=== PATIENT | male | born 1995 | race Hispanic/Latino ===

== ENCOUNTER 2018-07-31 11:56 | Inpatient (IN) ==
[2018-07-31] MEDS ORDERED: ZOFRAN PO ONE (12:21)
--- NOTE | 2018-07-31 12:48 | Diag Imaging Result Doc PS360 ---
EXAM: FLAT/UPRIGHT ABD/1 VIEW CHEST 07/31/2018 HISTORY: abdominal pain TECHNIQUE: Flat and upright abdomen with PA chest COMMENT: There is a large amount of stool present in the colon. Numerous surgical clips are present in the right upper quadrant. There is some fluid in the stomach. The small bowel is not apparently distended. The spleen may be enlarged. The appearance of the chest has not changed significantly since the previous study of 06/30/2018. IMPRESSION: Constipation. Splenomegaly. Electronically signed by Omi Leam 07/31/2018 12:46 PM
[2018-07-31 13:19] LABS: BASO# 0.07 X1000 (0.0-0.2); BASO% 0.6 % (0.0-0.8); EOS# 0.06 X1000 (0.0-0.7); EOS% 0.5 % (0.0-10.0); HEMATOCRIT 43.9 % (42.0-52.0); HEMOGLOBIN 14.7 g/dL (14.0-18.0); LYMPH% 14.4 % (20.5-51.1); MCH 27.6 PG (27-31); MCHC 33.5 g/dL (33-37); MCV 82.5 FL (81-99); MONO# 0.51 X1000 (0.11-0.59); MONO% 4.6 % (1.7-9.3); NEUT# 8.84 X1000 (1.4-6.5); NEUT% 79.9 % (42.2-75.2); PLT 348 X1000 (130-400); RBC 5.32 XMIL (4.7-6.1); RDW 13.7 % (11.5-14.5); WBC 11.08 X1000 (4.8-10.8)
[2018-07-31 13:29] LABS: ALB/GLOB RATIO 1.1; ALBUMIN 4.1 g/dL (3.5-5.0); CALCIUM 10.3 mg/dL (8.8-10.2); CREATININE 1.5 mg/dL (0.7-1.2); POTASSIUM 3.8 mmol/L (3.5-5.1); TOTAL BILIRUBIN 0.18 mg/dL (0.20-1.00); TOTAL PROTEIN 7.7 g/dL (6.3-8.3)
[2018-07-31 13:32] LABS: URINE SOURCE CLEAN CATCH
[2018-07-31] MEDS ORDERED: NS 1,000 ML IV ONE ×2 (13:39→14:14)
[2018-07-31 13:41] LABS: BILIRUBIN URINE NEGATIVE (NEGATIVE); BLOOD URINE NEGATIVE (NEGATIVE); COLOR STRAW; GLUCOSE URINE >1000 mg/dL (NEGATIVE); KETONE URINE 100 mg/dL (NEGATIVE); LEUKOCYTES URINE NEGATIVE (NEGATIVE); NITRITE URINE NEGATIVE (NEGATIVE); PROTEIN URINE TRACE mg/dL (NEGATIVE); SP GRAVITY URINE 1.018; TURBIDITY URINE CLEAR (CLEAR); UROBILINOGEN URINE NORMAL (NORMAL)
[2018-07-31 13:44] LABS: UR AMPHETAMINES QUAL NONE DETECTED (NONE DETECT); UR BARBITUATES QUAL NONE DETECTED (NONE DETECT); UR BENZODIAZEPIN QUAL NONE DETECTED (NONE DETECT); UR CANNABINOIDS QUAL NONE DETECTED (NONE DETECT); UR COCAINE QUAL NONE DETECTED (NONE DETECT); UR METHADONE QUAL NONE DETECTED (NONE DETECT); UR OPIATES QUAL NONE DETECTED (NONE DETECT); UR OXYCODONE QUAL NONE DETECTED (NONE DETECT); UR PCP QUAL NONE DETECTED (NONE DETECT)
[2018-07-31] MEDS ORDERED: HUMALOG IV ONE (13:48)
[2018-07-31 14:05] LABS: UR EPITHELIAL CELLS <10 /HPF (<10); URINE BACTERIA NEGATIVE /HPF; URINE RBC <10 /HPF (<10); URINE WBC 20-40 /HPF (<10)
[2018-07-31 14:06] LABS: URINE YEAST PRESENT
[2018-07-31 14:09] LABS: ALLEN TEST YES; BE -21.9 mmoll (-3.0-3.0); BLOOD TYPE ARTERIAL; HCO3-(ACT) 7.8 mmoll (20.0-26.0); METHB 1.6 % (0.0-1.5); O2(CT) 17.9 mL/dL (15.0-23.0); PO2(98.6) 122 mmHg (60-100); SAMPLE BLOOD; SAO2 97.5 % (95.0-100.0); THB 13.3 g/dL (11.5-17.4)
[2018-07-31 14:11] LABS: MODALITY ROOM AIR; PCO2(98.6) 14 mmHg (35-45); pH(98.6) 7.14 (7.35-7.45)
[2018-07-31] MEDS ORDERED: HUMULIN R 100 UNIT in NS 100 ML IV SCH (14:30)
[2018-07-31] MEDS ORDERED: POTASSIUM CHLORIDE 40 MEQ/SWI 40 MEQ/100 ML IVPB IV ONE (14:35)
[2018-07-31] MEDS ORDERED: D50W SYRINGE IV PRN (15:00)
[2018-07-31] MEDS ORDERED: ZOFRAN IV PRN (15:00)
[2018-07-31] MEDS ORDERED: POTASSIUM CHLORIDE 20 MEQ/SWI 20 MEQ/100 ML IVPB IV SCH (15:00)
[2018-07-31] MEDS ORDERED: D5 1/2 NS + KCL 10 MEQ 1,000 ML IV SCH (15:00)
[2018-07-31] MEDS ORDERED: NS 1,000 ML IV SCH (15:00)
[2018-07-31 15:15] LABS: MAGNESIUM 2.1 mg/dL (1.5-2.7); PHOSPHORUS 4.7 mg/dL (2.7-4.5)
[2018-07-31] MEDS ORDERED: SODIUM CHLORIDE 0.9% INJ PRN (15:21)
[2018-07-31] MEDS ORDERED: TYLENOL PO PRN (15:21)
[2018-07-31] MEDS ORDERED: PHENERGAN IV PRN (15:21)
--- NOTE | 2018-07-31 15:23 | PROVIDER DOCUMENTATION ---
This chart was entered by Tanya Figueroa Scribe, acting as scribe for Elbert Mcmillan DO. HPI-Abdominal Pain/GI Problem - General Chief Complaint: Abdominal Pain Stated Complaint: ABD PAIN,VOMITING,LEG PAIN Time Seen by Provider: 07/31/18 12:06 Source: patient Allergies/Adverse Reactions: Patient Allergies Allergy/AdvReac Type Severity Reaction Status Date / Time No Known Allergies Allergy Verified 06/30/18 23:27 Home Medications: Home Medication List Medication Instructions Recorded Confirmed Last Taken Type Prednisone 5 mg PO DAILY 06/30/18 07/31/18 06/30/18 08:00 History Tacrolimus 2.5 mg PO BID 06/30/18 07/31/18 06/30/18 08:00 History Insulin Glargine,Hum.rec.anlog 10 unit SQ Q12H 30 Days #600 units 07/04/18 07/31/18 Unknown Rx [Lantus Solostar] Insulin Aspart [Novolog Flexpen] 5 units SQ TID 07/31/18 07/31/18 Unknown History Mycophenolate Mofetil 1 tab PO DAILY 07/31/18 07/31/18 Unknown History - History of Present Illness-ABD Nature of Presenting Problems: 22 year old male presents to the ER with complaint of vomiting and nausea since this am with bilateral leg pain. Pt had a kidney transplant in 2006 at age 11 and is IDDM. Pt states for the past month he has had high blood sugar levels that have been uncontrolled with insulin. Pt is poor historian with malnourished appearance. Abdominal Pain Onset Location: reports: generalized abdomen Quality of Pain: reports: sharp, stabbing Onset/Duration: reports: this morning Timing: reports: still present Associated Symptoms: reports: nausea, vomiting, weakness, trouble walking, other (leg pain) # of Vomiting Episodes: 2 Review of Systems - Adult - REVIEW OF SYSTEMS - ADULT Constitutional: reports: fatique. denies: chills, fever Eyes: reports: no symptoms reported Ears, Nose, Mouth & Throat: reports: no symptoms reported Cardiovascular: reports: no symptoms reported Respiratory: reports: no symptoms reported Gastrointestinal: reports: abdominal pain, nausea, poor appetite, vomiting. denies: diarrhea Genitourinary: reports: no symptoms reported Musculoskeletal: reports: back pain, muscle aches (BLE), muscle weakness Integumentary: reports: no symptoms reported Neurological: reports: no symptoms reported Psychiatric: reports: no symptoms reported Endocrine: reports: no symptoms reported Hematologic/Lymphatic: reports: no symptoms reported Allergic/Immunologic: reports: no symptoms reported All Other Systems: Reviewed and Negative Past History - Adult - PAST MEDICAL HISTORY-ADULT Review of Records: reports: Nursing Assessment Review, Medications Reviewed Major Childhood Illnesses: reports: denies history Cardiovascular: reports: denies history Respiratory: reports: denies history Gastrointestinal: reports: denies history Obstetrical/Gynecological: reports: denies history Genitourinary: reports: denies history Musculoskeletal: reports: denies history Neurological: reports: denies history Endocrine/Immune: reports: denies history Diabetes Type: Type 1 Diabetes controlled by:: Insulin Dependent - PRIOR SURGERIES/PROCEDURES Surgical/Procedure History: reports: other (kidney transplant) - IMMUNIZATION STATUS Childhood Immunizations: See Nurse Assessment Flu Vaccine: See Nurse Assessment - FAMILY HISTORY Family History: reviewed, not pertinent Physical Exam-General - PHYSICAL EXAM-ADULT Initial Vital Signs Reviewed: Yes - CONSTITUTIONAL General Appearance: no apparent distress, cachetic - EYES Eyes: PERRL/EOMI, pink conjunctivae - HEAD, EARS, NOSE, MOUTH & THROAT HENMT: normocephalic/atraumatic, normal ENT inspection - NECK Neck: supple, normal inspection - RESPIRATORY Respiratory: lungs clear, normal breath sounds - CARDIOVASCULAR Cardiovascular: normal peripheral pulses, regular rate, rhythm - GASTROINTESTINAL (ABDOMEN) Abdominal Exam: tenderness - MUSCULOSKELETAL Back Exam: CVA tenderness, scoliosis (with left convexity) Extremity: tenderness (BLE) - SKIN Integumentary: normal color, warm/dry - NEUROLOGIC Neurologic: grossly normal, no motor/sensory deficits - PSYCHIATRIC Psych/Mental Status: normal mood/affect, normal thought content, normal thought process, oriented x 3 Progress - PLAN OF CARE/RESULTS Progress/Plan/Lab Results: Vital Signs - 8 hr 07/31/18 11:58 Temperature 97.7 F Pulse Rate 122 H Respiratory Rate 18 Blood Pressure 129/87 O2 Sat by Pulse Oximetry 99 Result Diagrams: 07/31/18 12:50 07/31/18 12:50 - REASSESSMENT Reassessment #1 Time Reassessed: 14:22 Status: unchanged (corrected sodium is 133.) - XRAY 1 XRAY Study: Abdomen Impression: Abnormal, See EMR Report (EXAM: FLAT/UPRIGHT ABD/1 VIEW CHEST 07/31/2018 HISTORY: abdominal pain TECHNIQUE: Flat and upright abdomen with PA chest COMMENT: There is a large amount of stool present in the colon. Numerous surgical clips are present in the right upper quadrant. There is some fluid in the stomach. The small bowel is not apparently distended. The spleen may be enlarged. The appearance of the chest has not changed significantly since the previous study of 06/30/2018. IMPRESSION: Constipation. Splenomegaly.) XRAY Interpretation: per radiologist - CONSULTS/PCP/HOSPITALIST Notification #1 *Consult/PCP/Hospitalist*: TAMMY Maya Time Discussed: 14:52 Reason/Comments: Agreed to Admit Consult Disposition: Admit Departure - Departure Date of Disposition Decision: 07/31/18 Time of Disposition Decision: 15:22 DIAGNOSIS: DKA, type 1 Disposition: ADMITTED INPATIENT 09 Certified Medical Emergency: Emergent Condition: Serious Referrals and Follow-Ups: None,PCP [Primary Care Provider] - - Critical Care Note This patient required my direct & personal management of CC.: Yes Total Time (mins): 45 Critical Care Statement: This patient required my direct personal management to treat or rule out processes, the absence of which, could potentiallly result in sudden, clinically significant life or limb threatening deterioration. Attestation - Physician/ CARO Attestation Patient care was provided by Advanced Practice Provider:: No The physician spent face to face time with patient:: Yes Advanced Practice Provider documentation review:: Supervising physician onsite and consulted in the evaluation and care of this patient. The physician did have a face to face encounter with the patient. This chart was documented by the indicated scribe, (Tanya Figueroa, [place]) and accurately reflects the services I performed and decisions made by me, Elbert Mcmillan DO, as attested by the provider's signature.
[2018-07-31] MEDS ORDERED: POTASSIUM CHLORIDE 10% LIQUID PO PRN (16:00)
[2018-07-31] MEDS ORDERED: POTASSIUM CHLORIDE 20 MEQ/SWI 20 MEQ/100 ML IVPB IV PRN (16:00)
[2018-07-31] MEDS ORDERED: SODIUM BICARBONATE 8.4% 100 MEQ in D5W 500 ML IV PRN (16:00)
[2018-07-31] MEDS ORDERED: MAGNESIUM SULFATE 2 GM/S.W.I. 2 GM/50 ML IVPB IV PRN (16:00)
[2018-07-31] MEDS ORDERED: POTASSIUM CHLORIDE 20% LIQUID PO PRN (16:00)
[2018-07-31] MEDS ORDERED: HUMULIN R 100 UNIT in NS 99 ML IV SCH (16:00)
[2018-07-31] MEDS ORDERED: SODIUM PHOSPHATE 30 MMOL in D5W 250 ML IV PRN (16:00)
[2018-07-31] MEDS ORDERED: SODIUM BICARBONATE 8.4% 50 MEQ in D5W 250 ML IV PRN (16:00)
[2018-07-31 16:16] LABS: HEMOGLOBIN A1C > 19.9 % (4.8-6.0)
[2018-07-31 16:17] LABS: EST AVG GLUCOSE > 599 mg/dL
[2018-07-31 16:18] LABS: CK PROFILE 49 U/L (24-204); LIPASE 20 U/L (13-60)
[2018-07-31 16:27] LABS: ACETONE SERUM MODERATE (NEGATIVE)
[2018-07-31] MEDS: NS 1,000 ML IV SCH ×2 (17:45→23:35)
[2018-07-31 18:33] LABS: ALLEN TEST NO; BE -14.2 mmoll (-3.0-3.0); BLOOD TYPE ARTERIAL; HCO3-(ACT) 13.8 mmoll (20.0-26.0); METHB 0.9 % (0.0-1.5); O2(CT) 17.2 mL/dL (15.0-23.0); O2HB 96.9 % (95.0-99.0); PCO2(98.6) 26 mmHg (35-45); PO2(98.6) 107 mmHg (60-100); SAMPLE BLOOD; SAO2 98.7 % (95.0-100.0); THB 12.5 g/dL (11.5-17.4); pH(98.6) 7.25 (7.35-7.45)
[2018-07-31 18:34] LABS: MODALITY ROOM AIR
[2018-07-31 19:40] LABS: AGAP 24; BUN 23 mg/dL (8-22); CALCIUM 9.4 mg/dL (8.8-10.2); CHLORIDE 93 mmol/L (98-107); COSMO 276; CREATININE 1.3 mg/dL (0.7-1.2); ESTIMATED GFR > 60; MAGNESIUM 1.6 mg/dL (1.5-2.7); PHOSPHORUS 2.2 mg/dL (2.7-4.5); SODIUM 127 mmol/L (136-145); TCO2 10 mmol/L (25-35)
[2018-07-31 19:43] LABS: GLUCOSE 405 mg/dL (70-104)
--- NOTE | 2018-07-31 19:43 | HISTORY AND PHYSICAL ---
PRIMARY CARE PROVIDER: No one. CHIEF COMPLAINT: Nausea, vomiting and elevated blood sugar. HISTORY OF PRESENT ILLNESS: Mr. 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 He had his left kidney transplanted November 27, 2006 at the age of 11. Since then he developed type 1 diabetes mellitus that was steroid induced initially. He claims that over the last 2 weeks he has had worsening nausea and vomiting and just feeling bad. He presents here with a serum glucose level of 831 and a leukocytosis of 11 with pH of 7.14. He has been started on the DKA paper protocol, started on IV fluids and insulin. He has had a mild acute kidney injury with this due to the dehydration but it looks like he was most recently admitted essentially for almost the same thing in the middle of June. He has stabilized out and will transfer to [place] [facility]. PAST MEDICAL HISTORY: 1. 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 2. 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 PAST SURGICAL HISTORY: Left kidney transplant 11/27/2006 at the age of 11. No other surgeries. SOCIAL HISTORY: He lives with family. Denies tobacco, alcohol or illicit drug use. FAMILY HISTORY: Denies. ALLERGIES: No known drug allergies. HOME MEDICATIONS: 1. Mycophenolate 500 mg p.o. twice daily. 2. Prednisone 5 mg p.o. daily. 3. Tacrolimus 2.5 mg p.o. twice daily. 4. NovoLog 5 unit subcutaneous t.i.d. 5. Lantus 12 units subcutaneous every 12 hours. REVIEW OF SYSTEMS: A 14-point review of systems was complete and all were negative except those mentioned above in the HPI. PHYSICAL EXAMINATION: VITAL SIGNS: Temperature 97.7, heart rate 115, respiratory rate 18, blood pressure 119/79, O2 saturation 100% on room air. He is 5 feet 7 inches tall, 121 pounds with a BMI of 19. GENERAL: Mr. Piotr Cantu is a 22-year-old male who is in no acute distress, resting comfortably in the bed. He is drowsy but is able to be alert enough to answer questions. HEENT: Atraumatic. Normocephalic. Pupils equal, round and reactive to light. Extraocular movements are intact. Mucous membranes are dry. NECK: Trachea is midline. LUNGS: Clear to auscultation bilateral breath sounds. No accessory muscle use or work with breathing noted. CARDIOVASCULAR: S1 and S2. Tachycardic rate and rhythm. No rubs, gallops or murmurs. No lower extremity edema. +2 dorsal and radial pulses. Negative JVD or carotid bruits. ABDOMEN: Soft. Nontender. Nondistended. Positive bowel sounds x4. EXTREMITIES: Moves all extremities equally with full range of motion. NEUROLOGIC: Alert and oriented x3. Follows commands. Sensory intact. SKIN: Warm, dry and intact. LABORATORY DATA: White blood cell count 11,000, hemoglobin 14, hematocrit 43, platelet count 348. ABGs on room air with pH of 7.14, PCO2 14, PO2 122, bicarbonate 7.8, base excess -21.9 with a saturation of 95, lactate 1.5, sodium 121, potassium 3.8, BUN 26, creatinine 1.5, glucose 831 with the next two checks being 500. Phosphorus 4.7, magnesium 2.1, bilirubin 0.18, AST 24, ALT 34, albumin 4.1, amylase 51. Urinalysis with trace protein, greater than 1000 glucose, 100 ketones, 20 to 40 white blood cells. Urine drug screen negative. IMAGING: Abdominal x-ray with constipation and splenomegaly. ASSESSMENT AND PLAN: 1. Diabetic ketoacidosis. Will follow diabetic ketoacidosis protocol, IV fluids, insulin, first blood glucose level was 831. 2. Nausea and vomiting. Antiemetics as needed. 3. Constipation. Will add Ruth-Colace to the regimen. 4. Type 1 diabetes mellitus that was initially steroid-induced from surgery. Please see No. 1. 5. Acute kidney injury with history of left renal transplant due to being born with kidney failure and prune belly syndrome that was performed on 11/27/2006 at the age of 11. Will continue his immunosuppressive medications which include prednisone 5 mg p.o. daily, tacrolimus 2.5 mg p.o. twice daily and mycophenolate 500 mg p.o. twice daily. 6. DVT prophylaxis with heparin 5000 units subcutaneous twice daily. Dictated by TAMMY Conn for Gunnar Ramirez MD cc: TAMMY Conn MD
[2018-07-31] MEDS ORDERED: PROGRAF PO SCH (21:00)
[2018-07-31] MEDS: ROCEPHIN 1 GM in NS 50 ML IV SCH (21:05)
[2018-07-31] MEDS: POTASSIUM CHLORIDE 40 MEQ/SWI 40 MEQ/100 ML IVPB IV PRN (21:06)
[2018-07-31] MEDS: HEPARIN SUBQ SCH (21:12)
[2018-07-31] MEDS: PERICOLACE PO SCH (21:13)
[2018-07-31] MEDS: D5 NS 1,000 ML IV SCH (21:15)
[2018-07-31 21:26] LABS: AGAP 17; BUN 17 mg/dL (8-22); CALCIUM 8.7 mg/dL (8.8-10.2); CHLORIDE 102 mmol/L (98-107); COSMO 274; ESTIMATED GFR > 60; GLUCOSE 216 mg/dL (70-104); MAGNESIUM 1.5 mg/dL (1.5-2.7); PHOSPHORUS 1.7 mg/dL (2.7-4.5); POTASSIUM 3.3 mmol/L (3.5-5.1); SODIUM 133 mmol/L (136-145); TCO2 14 mmol/L (25-35)
[2018-07-31] MEDS: CELLCEPT PO SCH (21:45)
[2018-07-31] MEDS ORDERED: PROGRAF PO ONE (22:00)
[2018-08-01 01:59] LABS: AGAP 11; BUN 12 mg/dL (8-22); CHLORIDE 108 mmol/L (98-107); COSMO 275; CREATININE 0.9 mg/dL (0.7-1.2); ESTIMATED GFR > 60; GLUCOSE 199 mg/dL (70-104); MAGNESIUM 2.1 mg/dL (1.5-2.7); PHOSPHORUS 1.6 mg/dL (2.7-4.5); POTASSIUM 3.3 mmol/L (3.5-5.1); SODIUM 135 mmol/L (136-145); TCO2 17 mmol/L (25-35)
[2018-08-01] MEDS: D5 NS 1,000 ML IV SCH ×2 (02:27→08:34)
[2018-08-01] MEDS: POTASSIUM CHLORIDE 40 MEQ/SWI 40 MEQ/100 ML IVPB IV PRN (02:27)
[2018-08-01 06:09] LABS: BE -9.1 mmoll (-3.0-3.0); BLOOD TYPE ARTERIAL; HCO3-(ACT) 17.8 mmoll (20.0-26.0); METHB 0.9 % (0.0-1.5); O2(CT) 16.2 mL/dL (15.0-23.0); PCO2(98.6) 36 mmHg (35-45); PO2(98.6) 92 mmHg (60-100); SAMPLE BLOOD; SAO2 99.5 % (95.0-100.0); THB 11.9 g/dL (11.5-17.4); pH(98.6) 7.28 (7.35-7.45)
[2018-08-01 06:11] LABS: ALLEN TEST NO; MODALITY ROOM AIR
[2018-08-01 07:16] LABS: BASO# 0.02 X1000 (0.0-0.2); BASO% 0.3 % (0.0-0.8); EOS# 0.18 X1000 (0.0-0.7); EOS% 2.4 % (0.0-10.0); HEMOGLOBIN 11.4 g/dL (14.0-18.0); IMM GRAN# 0.03 X1000 (0.0-0.04); IMM GRAN% 0.4 % (0.0-0.5); LYMPH# 2.35 X1000 (1.2-3.4); LYMPH% 30.9 % (20.5-51.1); MCH 27.1 PG (27-31); MCHC 35.6 g/dL (33-37); MCV 76.2 FL (81-99); MONO# 0.68 X1000 (0.11-0.59); MONO% 8.9 % (1.7-9.3); MPV 10.6 FL (7.4-10.4); NEUT# 4.35 X1000 (1.4-6.5); NEUT% 57.1 % (42.2-75.2); PLT 267 X1000 (130-400); RDW 13.1 % (11.5-14.5); WBC 7.61 X1000 (4.8-10.8)
[2018-08-01 07:35] LABS: AGAP 10; BUN 11 mg/dL (8-22); CHLORIDE 109 mmol/L (98-107); COSMO 278; CREATININE 0.8 mg/dL (0.7-1.2); ESTIMATED GFR > 60; GLUCOSE 185 mg/dL (70-104); MAGNESIUM 1.8 mg/dL (1.5-2.7); PHOSPHORUS 1.9 mg/dL (2.7-4.5); POTASSIUM 3.7 mmol/L (3.5-5.1); SODIUM 137 mmol/L (136-145); TCO2 18 mmol/L (25-35)
[2018-08-01 07:41] LABS: AGAP 10; ALKALINE PHOSPHATASE 92 U/L (32-122); BUN 11 mg/dL (8-22); CHLORIDE 110 mmol/L (98-107); COSMO 278; CREATININE 0.8 mg/dL (0.7-1.2); ESTIMATED GFR > 60; GLUCOSE 185 mg/dL (70-104); GOT 16 U/L (10-34); GPT 22 U/L (10-44); POTASSIUM 3.9 mmol/L (3.5-5.1); SODIUM 137 mmol/L (136-145); TCO2 18 mmol/L (25-35); TOTAL BILIRUBIN < 0.15 mg/dL (0.20-1.00); TOTAL PROTEIN 5.2 g/dL (6.3-8.3)
[2018-08-01] MEDS ORDERED: INSULIN PEN NEEDLES ONE (07:48)
[2018-08-01] MEDS: BASAGLAR SUBQ SCH ×2 (08:00→21:04)
[2018-08-01] MEDS: PERICOLACE PO SCH ×2 (08:15→21:04)
[2018-08-01] MEDS: PREDNISONE PO SCH (08:15)
[2018-08-01] MEDS: NS 1,000 ML IV SCH ×3 (08:35→21:04)
[2018-08-01] MEDS ORDERED: PROGRAF PO SCH (09:00)
[2018-08-01] MEDS: HEPARIN SUBQ SCH (09:00)
[2018-08-01] MEDS ORDERED: MYCOPHENOLATE MOFETIL PO SCH (09:00)
[2018-08-01] MEDS: CELLCEPT PO SCH ×2 (09:48→21:08)
[2018-08-01] MEDS: PROGRAF PO SCH ×4 (09:48→21:06)
[2018-08-01 09:54] LABS: AGAP 10; BUN 9 mg/dL (8-22); CHLORIDE 104 mmol/L (98-107); COSMO 268; CREATININE 0.9 mg/dL (0.7-1.2); ESTIMATED GFR > 60; GLUCOSE 176 mg/dL (70-104); MAGNESIUM 1.7 mg/dL (1.5-2.7); PHOSPHORUS 2.1 mg/dL (2.7-4.5); POTASSIUM 3.2 mmol/L (3.5-5.1); SODIUM 132 mmol/L (136-145); TCO2 18 mmol/L (25-35)
--- NOTE | 2018-08-01 10:10 | EKG Report ---
Test Performed on : 08/01/2018 08:35:27 AM Test Reason : AM EKG Blood Pressure : / mmHG Vent. Rate : 073 BPM Atrial Rate : 073 BPM P-R Int : 130 ms QRS Dur : 082 ms QT Int : 406 ms P-R-T Axes : 058 068 055 degrees QTc Int : 447 ms Normal sinus rhythm. with sinus arrhythmia. ST elevation, consider early repolarization, pericarditis, or injury Abnormal ECG No previous ECGs available Unconfirmed Result
[2018-08-01] MEDS ORDERED: INSULIN PEN NEEDLES MISC SCH (11:15)
[2018-08-01] MEDS ORDERED: HUMALOG (PARKWAY) SUBQ SCH ×2 (11:30→13:28)
[2018-08-01 13:33] LABS: AGAP 10; BUN 10 mg/dL (8-22); CALCIUM 7.6 mg/dL (8.8-10.2); CHLORIDE 102 mmol/L (98-107); COSMO 279; CREATININE 0.9 mg/dL (0.7-1.2); ESTIMATED GFR > 60; GLUCOSE 449 mg/dL (70-104); PHOSPHORUS 1.8 mg/dL (2.7-4.5); POTASSIUM 3.5 mmol/L (3.5-5.1); SODIUM 130 mmol/L (136-145); TCO2 18 mmol/L (25-35)
[2018-08-01] MEDS ORDERED: BASAGLAR SUBQ ONE (13:36)
[2018-08-01] MEDS ORDERED: HUMALOG (PARKWAY) SUBQ ONE (13:46)
[2018-08-01] MEDS: HUMALOG (PARKWAY) SUBQ SCH ×2 (16:34→21:05)
[2018-08-01] MEDS ORDERED: INSULIN ASPART 5 UNIT SQ SCH (17:00)
[2018-08-01 18:51] LABS: AGAP 9; ALBUMIN 2.8 g/dL (3.5-5.0); BUN 10 mg/dL (8-22); CALCIUM 7.7 mg/dL (8.8-10.2); CHLORIDE 106 mmol/L (98-107); COSMO 275; CREATININE 0.9 mg/dL (0.7-1.2); ESTIMATED GFR > 60; GLUCOSE 266 mg/dL (70-104); PHOSPHORUS 1.8 mg/dL (2.7-4.5); POTASSIUM 3.8 mmol/L (3.5-5.1); SODIUM 133 mmol/L (136-145); TCO2 18 mmol/L (25-35)
[2018-08-01] MEDS: ROCEPHIN 1 GM in NS 50 ML IV SCH (21:04)
--- NOTE | 2018-08-01 22:44 | PROGRESS NOTE ---
DATE: 08/01/2018 SUBJECTIVE: Patient notes he is feeling a lot better. Nausea is improved. Denies any chest pain, palpitations. OBJECTIVE: Vital Signs: Temperature 98.6, pulse 92, respiratory 20, BP 101/59. General: Patient is awake, alert. No current respiratory distress. HEENT: Normocephalic. Neck: Supple. CARDIOVASCULAR: Regular rate. Chest: Clear. Abdomen: Soft. Extremities: Moves all extremities. ASSESSMENT: 1. Diabetic ketoacidosis, appears resolved. Bicarb is 17. 2. Hypokalemia. 3. Diabetes with hyperglycemia, type 1. 4. Constipation. PLAN: We will continue patient in the hospital. Advance diet. Stop insulin drip. Place him on Lantus. Further orders as needed. cc: Gunnar Ramirez MD
[2018-08-02 01:04] LABS: ALBUMIN 2.6 g/dL (3.5-5.0); BUN 13 mg/dL (8-22); CALCIUM 7.4 mg/dL (8.8-10.2); ESTIMATED GFR > 60; GLUCOSE 356 mg/dL (70-104); PHOSPHORUS 1.7 mg/dL (2.7-4.5); TCO2 21 mmol/L (25-35)
[2018-08-02 01:25] LABS: CHLORIDE 103 mmol/L (98-107); POTASSIUM 3.1 mmol/L (3.5-5.1); SODIUM 134 mmol/L (136-145)
[2018-08-02 01:26] LABS: AGAP 9; COSMO 283
[2018-08-02] MEDS ORDERED: INSULIN PEN NEEDLES MISC PRN (06:17)
[2018-08-02 06:19] LABS: HEMATOCRIT 31.1 % (42.0-52.0); HEMOGLOBIN 10.9 g/dL (14.0-18.0); MCH 27.1 PG (27-31); MCV 77.4 FL (81-99); MPV 10.2 FL (7.4-10.4); RBC 4.02 XMIL (4.7-6.1); RDW 13.4 % (11.5-14.5); WBC 4.9 X1000 (4.8-10.8)
[2018-08-02] MEDS: NS 1,000 ML IV SCH (06:19)
[2018-08-02] MEDS: HUMALOG (PARKWAY) SUBQ SCH ×7 (06:20→21:53)
[2018-08-02] MEDS ORDERED: BASAGLAR SUBQ SCH (09:00)
[2018-08-02] MEDS: PROGRAF PO SCH ×4 (09:52→21:51)
[2018-08-02] MEDS: PERICOLACE PO SCH ×2 (09:52→21:53)
[2018-08-02] MEDS: PREDNISONE PO SCH (09:52)
[2018-08-02] MEDS: CELLCEPT PO SCH ×2 (10:00→21:51)
--- NOTE | 2018-08-02 20:16 | PROGRESS NOTE ---
DATE: 08/02/2018 SUBJECTIVE: Patient has no complaints, states he is tolerating eating. OBJECTIVE: Vital signs: Temperature 98.6, pulse 92, respiratory rate 18, BP 101/59. General: Patient is awake, currently is in no respiratory distress. HEENT: Normocephalic. Neck: Supple. Cardiovascular: Regular rate. No murmurs. Chest: Clear nonlabored. Abdomen: Soft, nondistended. Extremities: Moves all extremities. ASSESSMENT: 1. Diabetic ketoacidosis, resolved. 2. Diabetes with poor control. 3. Medical noncompliance. 4. Nausea and vomiting, resolved. 5. Constipation, resolved. 6. Hypokalemia. We will continue to replace. PLAN: We will continue to adjust his insulin. Given that he has just recently in the hospital with DKA, we certainly do not want to send him home until his blood sugars are controlled so that we know what plan to give him. I expect that he will be in the hospital another day or two. cc: Gunnar Ramirez MD
[2018-08-02] MEDS: ROCEPHIN 1 GM in NS 50 ML IV SCH (21:53)
[2018-08-03] MEDS: HUMALOG (PARKWAY) SUBQ SCH ×7 (06:49→21:39)
[2018-08-03] MEDS: ROCEPHIN 1 GM in NS 50 ML IV SCH (06:52)
[2018-08-03] MEDS: PREDNISONE PO SCH (08:52)
[2018-08-03] MEDS: CELLCEPT PO SCH ×2 (08:52→21:34)
[2018-08-03] MEDS: PERICOLACE PO SCH ×2 (08:52→21:33)
[2018-08-03] MEDS: PROGRAF PO SCH ×4 (08:52→21:33)
[2018-08-03] MEDS ORDERED: BASAGLAR SUBQ SCH (09:00)
--- NOTE | 2018-08-04 00:59 | PROGRESS NOTE ---
DATE: 08/03/2018 SUBJECTIVE: Patient notes that overall he is feeling a little bit better. Still not eating well, still worried about his blood sugars being elevated. PHYSICAL EXAMINATION: Vital Signs: Reviewed. Temperature 97.8 degrees, pulse 61, respiratory 22, BP 122/72. General: Patient is awake, alert, currently in no distress. HEENT: Normocephalic. Neck: Supple. Cardiovascular: Appears regular rate and rhythm. Chest: Decreased but equal breath sounds bilaterally. Abdomen: Soft, nondistended. Extremities: Moves all extremities. ASSESSMENT: 1. Diabetes with hyperglycemia. We will continue to increase Basaglar up to 24 units. 2. Hyponatremia. 3. Constipation. 4. Others. PLAN: Will replace patient's potassium. Elevate Basaglar from 22 to 24 units and will follow. cc: Gunnar Ramirez MD
[2018-08-04] MEDS: HUMALOG (PARKWAY) SUBQ SCH ×7 (07:29→16:55)
[2018-08-04] MEDS: ROCEPHIN 1 GM in NS 50 ML IV SCH (07:30)
[2018-08-04] MEDS ORDERED: BASAGLAR SUBQ SCH (09:00)
[2018-08-04] MEDS: PERICOLACE PO SCH (10:03)
[2018-08-04] MEDS: PROGRAF PO SCH ×2 (10:03)
[2018-08-04] MEDS: PREDNISONE PO SCH (10:04)
[2018-08-04] MEDS: CELLCEPT PO SCH (10:04)
[2018-08-04 16:46] VITALS: BP 115/76
--- NOTE | 2018-08-05 05:41 | DISCHARGE SUMMARY ---
ADMISSION DATE: 07/31/2018 DISCHARGE DATE: 08/04/2018 DIAGNOSES: 1. Diabetic ketoacidosis. 2. Nausea and vomiting. 3. Constipation. 4. Diabetes mellitus type 1. 5. 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 DIAGNOSTICS: Abdominal x-ray revealed constipation and splenomegaly. MICROBIOLOGY: 1. Blood cultures x2 revealed no growth. 2. Urine culture revealed mixed yves. HOSPITAL COURSE: Mr. Cantu presented to the emergency room with nausea, vomiting and elevated blood sugar. He was found to be in DKA. He was admitted to ICU, treated with DKA protocol. Thankfully, we were able to wean his insulin drip. We increased his Basaglar to 24 units, transitioned back to his home medications and blood sugars have been in the 200s. We trended electrolytes. We repleted as appropriate. He did have constipation. After bowel regimen, he had 4 bowel movements. States he is feeling much better. Thankfully, today he was ready for discharge. DISCHARGE VITAL SIGNS: Blood pressure is 115/76 with a heart rate of 100, respirations are 18, temperature 98.3 degrees with room air sat 98-100%. DISCHARGE EXAMINATION: Cardiovascular: Regular rate and rhythm. S1 and S2 appreciated. He was tachycardic. No rubs, murmurs or gallops. He has no lower extremity edema with peripheral pulses palpable x4 extremities. Calves nontender bilateral Pulmonary: Breath sounds were clear with no increased work of breathing noted. Gastrointestinal: Abdomen is soft, nontender, nondistended with bowel sounds in all 4 quadrants. Neurologic: He is alert and oriented x3. DISCHARGE MEDICATIONS: 1. CellCept 500 mg 1 tab b.i.d. 2. Basaglar insulin 24 units subcutaneous daily. 3. NovoLog FlexPen 5 units subcutaneously 3 times a day before meals 4. Prednisone 5 mg p.o. daily. 5. Tacrolimus 2.5 mg b.i.d. FOLLOWUP: 1. He has been instructed to call his has chalk cutter, transplant team today or tomorrow, notify them of this admission and schedule a follow-up appointment. 2. He is being discharged home in stable condition with family members. TIME SPENT: This is a greater than 30 minute discharge. Dictated by TAMMY Lopez for Gunnar Ramirez MD cc: TAMMY Lopez MD
--- NOTE | 2018-08-05 17:59 | DISCHARGE SUMMARY ---
ADMISSION DATE: 07/31/2018 DISCHARGE DATE: 08/04/2018 Addendum Report Patient seen and examined by myself. Full note dictated and discussed with nurse practitioner. On discharge, patient is awake, currently in no distress. Blood sugars minimally elevated in the mid 200s. We will continue to encourage him to increase his insulin at home. He will follow up outpatient with his primary care in 1 week to readjust his insulin levels. cc: Gunnar Ramirez MD
== END 2018-08-04 18:43 | disposition home or self-care (01) | DRG 638 ==
LOC: ED 11:56 → P.EDIPHOLD 11:57 → P.ICU 18:55 → P.MEDSURG 08-02 18:21
PROVIDERS: ATTEND Family Medicine
CPT/HCPCS: 36415; 74022; 80048; 80053; 80061; 80069; 80101; 80301; 80307; 80324; 80345; 80346; 80353; 80358; 80361; 80365; 81001; 82009; 82150; 82550; 82805; 82948; 83036; 83605; 83690; 83721; 83735; 83992; 84100; 84484; 85025; 85027; 87040; 87088; 93005; 99285; A9270; G0431; G0434; G0479; G0480; J0696; J1644; J1815; J2405; J3475; J3480; J7030; J7042; J7506; J7512; J7517; XXXXX

== ENCOUNTER 2019-06-06 07:35 | Inpatient (IN) ==
--- NOTE | 2019-06-06 08:05 | EKG Report ---
Test Performed on : 06/06/2019 07:39:40 AM Test Reason : CHEST PAIN Blood Pressure : / mmHG Vent. Rate : 120 BPM Atrial Rate : 120 BPM P-R Int : 126 ms QRS Dur : 082 ms QT Int : 346 ms P-R-T Axes : 066 064 071 degrees QTc Int : 489 ms Sinus tachycardia. Otherwise normal ECG When compared with ECG of 01-AUG-2018 08:35, Vent. rate has increased BY [address] no longer elevated in Inferior leads ST no longer elevated in Lateral leads T wave inversion no longer evident in Anterior leads Unconfirmed Result
[2019-06-06] MEDS ORDERED: HUMULIN R IV ONE (09:06)
[2019-06-06] MEDS ORDERED: NS 1,000 ML IV ONE (09:06)
--- NOTE | 2019-06-06 09:10 | PROVIDER DOCUMENTATION ---
HPI-General Adult - General Chief Complaint: Chest Pain Stated Complaint: CHEST PAIN,SOB Time Seen by Provider: 06/06/19 08:07 Source: patient, family Allergies/Adverse Reactions: Patient Allergies Allergy/AdvReac Type Severity Reaction Status Date / Time ibuprofen [From Motrin] AdvReac Unknown Verified 06/06/19 08:31 Home Medications: Home Medication List Medication Instructions Recorded Confirmed Last Taken Type Prednisone 5 mg PO DAILY 06/30/18 06/06/19 06/05/19 History Tacrolimus 2.5 mg PO DAILY 06/30/18 06/06/19 06/05/19 History Insulin Aspart [Novolog Flexpen] 10 units SQ TID 07/31/18 06/06/19 06/05/19 History Mycophenolate Mofetil 1 tab PO HS 07/31/18 06/06/19 06/05/19 History Amlodipine [Norvasc] 10 mg PO BID 06/06/19 06/06/19 06/05/19 History Insulin Glargine,Hum.rec.anlog 20 units SQ HS 06/06/19 06/06/19 06/05/19 History [Lantus Solostar] LISINOpril [Prinivil] 5 mg PO HS 06/06/19 06/06/19 06/05/19 History Nitrofurantoin Macrocrystal 100 mg PO HS 06/06/19 06/06/19 06/05/19 History [Macrodantin] Omeprazole [Prilosec] 20 mg PO DAILY 06/06/19 06/06/19 06/05/19 History - History of Present Illness -Gen Adult Nature of Presenting Problems: 23 yo reports tachycardia an weakness.2nd day of sxs. polyuria and polydipsia, weak, no fever or cough. reports steroid induced DM , renal transplant pt. Review of Systems - Adult - REVIEW OF SYSTEMS - ADULT Constitutional: reports: no symptoms reported, fatique. denies: chills, fever Eyes: reports: no symptoms reported Ears, Nose, Mouth & Throat: reports: no symptoms reported Cardiovascular: reports: no symptoms reported Respiratory: reports: no symptoms reported Gastrointestinal: reports: no symptoms reported Genitourinary: reports: no symptoms reported Musculoskeletal: reports: no symptoms reported Integumentary: reports: no symptoms reported Neurological: reports: no symptoms reported Psychiatric: reports: no symptoms reported Endocrine: reports: no symptoms reported, polyuria. denies: change in skin pigment, goiter Hematologic/Lymphatic: reports: no symptoms reported Allergic/Immunologic: reports: no symptoms reported All Other Systems: Reviewed and Negative Past History - Adult - PAST MEDICAL HISTORY-ADULT Review of Records: reports: Nursing Assessment Review, Medications Reviewed, Social history reviewed & non-contributory. Major Childhood Illnesses: reports: denies history Cardiovascular: reports: denies history Respiratory: reports: denies history Gastrointestinal: reports: denies history Obstetrical/Gynecological: reports: denies history Genitourinary: reports: denies history Musculoskeletal: reports: denies history Neurological: reports: denies history Endocrine/Immune: reports: denies history Other Conditions: reports: denies history - IMMUNIZATION STATUS Childhood Immunizations: See Nurse Assessment Flu Vaccine: See Nurse Assessment - FAMILY HISTORY Family History: reviewed, not pertinent Physical Exam-General - PHYSICAL EXAM-ADULT Initial Vital Signs Reviewed: Yes (tachy) - CONSTITUTIONAL General Appearance: alert, no apparent distress - EYES Eyes: PERRL/EOMI - HEAD, EARS, NOSE, MOUTH & THROAT HENMT: normocephalic/atraumatic, other (throat dry, not red). 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, grossly normal, no motor/sensory deficits - PSYCHIATRIC Psych/Mental Status: normal mood/affect, oriented x 3 Progress - PLAN OF CARE/RESULTS Progress/Plan/Lab Results: Vital Signs - 8 hr 06/06/19 07:47 Temperature 97.8 F Pulse Rate 123 H Respiratory Rate 22 Blood Pressure 141/90 O2 Sat by Pulse Oximetry 99 Orders Category Date Time Status Finger Stick Blood Sugar (ED) DIRECTED Care 06/06/19 08:59 Ordered Saline Loc NOW Care 06/06/19 08:59 Ordered CHEST-PORTABLE [RAD] Stat Exams 06/06/19 09:03 Ordered ABG [RESP] Stat Lab 06/06/19 09:04 Ordered CBC WITH ELECTRONIC DIFF [HEME] Stat Lab 06/06/19 09:02 Uncollected COMPREHENSIVE METABOLIC PANEL [CHEM] Stat Lab 06/06/19 09:02 Uncollected INFLUENZA SCREEN A/B Stat Lab 06/06/19 09:03 Uncollected LACTATE, PLASMA [CHEM] Stat Lab 06/06/19 08:43 Uncollected LACTATE, PLASMA [CHEM] Stat Lab 06/06/19 09:03 Uncollected MAGNESIUM [CHEM] Stat Lab 06/06/19 09:03 Uncollected URINALYSIS W/POSS RFLX CULT [URINALYSIS] Stat Lab 06/06/19 09:03 Uncollected URINE DRUG SCREEN Stat Lab 06/06/19 09:03 Uncollected Insulin Human Regular [Humulin R] Med 06/06/19 09:06 Once 10 unit IV NOW ONE Ns 1000 ml IV Bolus X1 Med 06/06/19 09:06 Ordered 0.9% Sodium Chloride Inj [Ns] 1,000 ml IV 999 mls/hr EKG [EKG] Stat Ther 06/06/19 07:57 Draft Result Diagrams: 06/06/19 08:20 06/06/19 08:20 - CONSULTS/PCP/HOSPITALIST Notification #1 *Consult/PCP/Hospitalist*: KEVIN ARNOLD Time Discussed: 11:16 Consult Disposition: Admit Departure - Departure Date of Disposition Decision: 06/06/19 Time of Disposition Decision: 11:16 DIAGNOSIS: DKA, type 1, Renal transplant recipient Disposition: ADMITTED INPATIENT 09 Certified Medical Emergency: Emergent Condition: Fair Referrals and Follow-Ups: Mark Wing [Primary Care Provider] - - Critical Care Note This patient required my direct & personal management of CC.: Yes Total Time (mins): 35 Critical Care Statement: This patient required my direct personal management to treat or rule out processes, the absence of which, could potentiallly result in sudden, clinically significant life or limb threatening deterioration. Attestation - Physician/ CARO Attestation The physician spent face to face time with patient:: Yes Advanced Practice Provider documentation review:: Supervising physician onsite and consulted in the evaluation and care of this patient. The physician did have a face to face encounter with the patient.
--- NOTE | 2019-06-06 09:36 | Diag Imaging Result Doc PS360 ---
EXAM: CHEST-PORTABLE HISTORY: dka TECHNIQUE: Single view COMPARISON: 07/31/2018 FINDINGS: The lungs are well expanded. The heart is not enlarged. The vessels are not distended. There are no infiltrates. No effusion identified. Mild to moderate scoliosis IMPRESSION: Negative exam. Electronically signed by Gabriel Trevino 06/06/2019 9:34 AM
[2019-06-06 09:40] LABS: BASO# 0.05 X1000 (0.0-0.2); BASO% 0.3 % (0.0-0.8); EOS# 0.29 X1000 (0.0-0.7); EOS% 1.9 % (0.0-10.0); HEMATOCRIT 42.4 % (42.0-52.0); HEMOGLOBIN 13.6 g/dL (14.0-18.0); IMM GRAN# 0.17 X1000 (0.0-0.04); IMM GRAN% 1.1 % (0.0-0.5); LYMPH# 4.11 X1000 (1.2-3.4); LYMPH% 27.3 % (20.5-51.1); MCH 24.6 PG (27-31); MCHC 32.1 g/dL (33-37); MCV 76.8 FL (81-99); MONO# 0.85 X1000 (0.11-0.59); MONO% 5.7 % (1.7-9.3); MPV 11.3 FL (7.4-10.4); NEUT# 9.56 X1000 (1.4-6.5); NEUT% 63.7 % (42.2-75.2); PLT 423 X1000 (130-400); RBC 5.52 XMIL (4.7-6.1); RDW 13.5 % (11.5-14.5); WBC 15.03 X1000 (4.8-10.8)
[2019-06-06 09:40] LABS: ALLEN TEST YES; BE -24.3 mmoll (-3.0-3.0); BLOOD TYPE ARTERIAL; METHB 1.2 % (0.0-1.5); O2(CT) 19.2 mL/dL (15.0-23.0); O2HB 96.9 % (95.0-99.0); PO2(98.6) 117 mmHg (60-100); SAMPLE BLOOD; SAO2 99.6 % (95.0-100.0)
[2019-06-06 09:43] LABS: MODALITY ROOM AIR; PCO2(98.6) 14 mmHg (35-45); pH(98.6) 7.06 (7.35-7.45)
[2019-06-06 09:58] LABS: ALB/GLOB RATIO 0.7; ALBUMIN 3.8 g/dL (3.5-5.0); CALCIUM 10.2 mg/dL (8.8-10.2); CREATININE 1.8 mg/dL (0.7-1.2); MAGNESIUM 2.4 mg/dL (1.5-2.7); POTASSIUM 4.1 mmol/L (3.5-5.1); TOTAL BILIRUBIN 0.23 mg/dL (0.20-1.00); TOTAL PROTEIN 9.3 g/dL (6.3-8.3)
[2019-06-06] MEDS ORDERED: HUMULIN R 100 UNIT in NS 99 ML IV ONE (10:09)
[2019-06-06 11:23] LABS: URINE SOURCE CLEAN CATCH
[2019-06-06 11:28] LABS: BILIRUBIN URINE NEGATIVE (NEGATIVE); BLOOD URINE SMALL (NEGATIVE); COLOR YELLOW; GLUCOSE URINE >1000 mg/dL (NEGATIVE); KETONE URINE 150 mg/dL (NEGATIVE); LEUKOCYTES URINE LARGE (NEGATIVE); NITRITE URINE NEGATIVE (NEGATIVE); PROTEIN URINE 50 mg/dL (NEGATIVE); SP GRAVITY URINE 1.017; TURBIDITY URINE HAZY (CLEAR); UROBILINOGEN URINE NORMAL (NORMAL)
[2019-06-06] MEDS ORDERED: POTASSIUM CHLORIDE 10% LIQUID PO ONE (11:39)
[2019-06-06 11:41] LABS: UR AMPHETAMINES QUAL NONE DETECTED (NONE DETECT); UR BARBITUATES QUAL NONE DETECTED (NONE DETECT); UR BENZODIAZEPIN QUAL NONE DETECTED (NONE DETECT); UR CANNABINOIDS QUAL NONE DETECTED (NONE DETECT); UR COCAINE QUAL NONE DETECTED (NONE DETECT); UR METHADONE QUAL NONE DETECTED (NONE DETECT); UR OPIATES QUAL NONE DETECTED (NONE DETECT); UR OXYCODONE QUAL NONE DETECTED (NONE DETECT); UR PCP QUAL NONE DETECTED (NONE DETECT)
[2019-06-06] MEDS ORDERED: HUMULIN R 100 UNIT in NS 100 ML IV SCH (11:50)
[2019-06-06] MEDS ORDERED: MAGNESIUM SULFATE 2 GM/S.W.I. 2 GM/50 ML IVPB IV PRN (11:50)
[2019-06-06] MEDS ORDERED: COMPAZINE IV PRN (11:50)
[2019-06-06] MEDS ORDERED: POTASSIUM CHLORIDE 20 MEQ/SWI 20 MEQ/100 ML IVPB IV PRN (11:50)
[2019-06-06] MEDS ORDERED: SODIUM PHOSPHATE 30 MMOL in D5W 250 ML IV PRN (11:50)
[2019-06-06] MEDS ORDERED: SODIUM BICARBONATE 8.4% 100 MEQ in STERILE WATER INJ. 500 ML IV PRN (11:50)
[2019-06-06] MEDS ORDERED: TYLENOL PR PRN (11:50)
[2019-06-06] MEDS ORDERED: ZOFRAN IV PRN (11:50)
[2019-06-06] MEDS ORDERED: D50W SYRINGE IV PRN (11:50)
[2019-06-06] MEDS ORDERED: TYLENOL PO PRN (11:50)
[2019-06-06] MEDS ORDERED: POTASSIUM CHLORIDE 40 MEQ/SWI 40 MEQ/100 ML IVPB IV PRN (11:50)
[2019-06-06 11:52] LABS: UR EPITHELIAL CELLS <10 /HPF (<10); URINE BACTERIA NEGATIVE /HPF; URINE RBC <10 /HPF (<10); URINE WBC TNTC /HPF (<10)
[2019-06-06 11:59] LABS: URINE YEAST PRESENT
[2019-06-06] MEDS ORDERED: NS 1,000 ML IV SCH (12:00)
[2019-06-06] MEDS: NS 1,000 ML IV SCH ×3 (12:10→15:43)
[2019-06-06 12:27] LABS: PHOSPHORUS 5.3 mg/dL (2.7-4.5)
[2019-06-06 14:37] LABS: CALCIUM 9.4 mg/dL (8.8-10.2); CREATININE 1.7 mg/dL (0.7-1.2); MAGNESIUM 2.1 mg/dL (1.5-2.7); PHOSPHORUS 2.5 mg/dL (2.7-4.5); POTASSIUM 4.3 mmol/L (3.5-5.1)
[2019-06-06 15:30] LABS: ALLEN TEST NO; BE -18.1 mmoll (-3.0-3.0); BLOOD TYPE ARTERIAL; HCO3-(ACT) 10.8 mmoll (20.0-26.0); PCO2(98.6) 25 mmHg (35-45); PO2(98.6) 104 mmHg (60-100); SAMPLE BLOOD
[2019-06-06 15:32] LABS: MODALITY ROOM AIR; pH(98.6) 7.16 (7.35-7.45)
--- NOTE | 2019-06-06 15:57 | HISTORY AND PHYSICAL ---
PRIMARY CARE: Dr. Mark Wing CHIEF COMPLAINT: Fast heart rate, heart pounding, high blood sugar. HISTORY OF PRESENT ILLNESS: Mr. 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 He presented to the ED with tachycardia and heart pounding and weakness with symptoms of polyuria and polydipsia. He reports no recent illnesses, fever, chills, nausea, vomiting, or diarrhea. He does report that he is on Macrodantin for maintenance dose for his kidneys. Dr. Heredia did speak with the business support coordinator at [facility]. They were willing to accept the patient. However, they are currently on diversion secondary to no beds. He was found to be in DKA. He has been initiated on the DKA protocol and is currently tolerating some clear liquids and we will keep him on his normal home regimen per the transplant coordinators recommendations. PAST MEDICAL HISTORY: 1. 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 2. Prune belly syndrome, status post renal transplantation in 2006. PAST SURGICAL HISTORY: Kidney transplant 2006 followed by [facility]. SOCIAL HISTORY: He lives with family. No tobacco, alcohol or illicit drug use. FAMILY HISTORY: Denies. ALLERGIES: Ibuprofen, unknown reaction. HOME MEDICATIONS: 1. Norvasc 10 mg p.o. b.i.d. 2. NovoLog FlexPen 10 units subcutaneously t.i.d. 3. Lantus 20 units subcutaneous at bedtime. 4. Prinivil 5 mg p.o. at bedtime. 5. Mycophenolate mofetil 500 mg p.o. at bedtime. 6. Macrodantin 100 mg p.o. at bedtime. 7. Prilosec 20 mg p.o. daily. 8. Prednisone 5 mg p.o. daily. 9. Tacrolimus 2.5 mg p.o. daily. PHYSICAL EXAMINATION: VITAL SIGNS: Temperature is 98.1 degrees, heart rate 102, respirations 19, blood pressure is 129/90. O2 is 100% on room air. GENERAL: Mr. Cantu is a pleasant 23-year-old male who is lying in the stretcher sleeping. He easily awakens to voice, in no acute distress. HEENT: Atraumatic, normocephalic. NECK: Supple. Trachea midline. CARDIOVASCULAR: S1, S2 appreciated. He is tachycardic. No murmurs, gallops or rubs noted. RESPIRATORY: Lung sounds clear bilaterally. GASTROINTESTINAL: Abdomen soft, nontender, nondistended. Positive bowel sounds. EXTREMITIES: Negative for edema. NEUROLOGIC: No focal deficits noted. DIAGNOSTIC DATA: EKG sinus tachycardia at 126 beats per minute. Chest x-ray, negative exam. LABORATORY DATA: White count 15, hemoglobin and hematocrit 13 and 42, platelet count is 423,000. ABG pH 7.06, pCO2 14, PO2 117, base excess -24.3, bicarb is 6, O2 saturation was 99 on room air. Sodium 138, potassium 4.1, BUN 26, creatinine 1.8, blood glucose is 708, phosphorus 5.3, magnesium 2.4, alkaline phosphatase 175. Plasma lactate 1.9. Urinalysis too numerous to count WBCs, large leukocytes, small blood, no bacteria, no nitrates. Toxicology screen is negative. ASSESSMENT AND PLAN: 1. Diabetic ketoacidosis. Patient has been placed on the diabetic ketoacidosis protocol and will be watched closely in the ICU. 2. Diabetes mellitus that was initially steroid induced from steroids. 3. Renal transplant secondary to prune belly syndrome in 2006, per [facility]'s business support coordinator, continue his immunosuppressive medication. 4. Further recommendation to follow physician evaluation, laboratory and diagnostic data. Dictated by TAMMY Bustos for Magan Alcantar MD cc: Magan Alcantar MD
[2019-06-06 16:26] LABS: CREATININE 1.6 mg/dL (0.7-1.2); PHOSPHORUS 2.5 mg/dL (2.7-4.5)
--- NOTE | 2019-06-06 18:23 | HISTORY AND PHYSICAL ---
ADDENDUM: The patient seen and examined by me [id number]. All the laboratory, vital signs and images were reviewed. The patient presented to the emergency department with a chief complaint of generalized weakness and tachycardia. He was found to be in DKA. He has been placed on DKA protocol. He denies any nausea, vomiting or diarrhea, but apparently he has been having some chills. We will panculture this patient. He is not coughing. X-ray looks fine. It is negative for any kind of infiltration, and he does not have a fever, but he is tachycardic. He will receive his IV fluids. We will continue with his IV fluids, and he will be placed on insulin drip. We will follow the protocol. He is in DKA. He has a past medical history of kidney transplant. We will continue with his home medication including Prograf and including mycophenolate and steroids. As per the patient, he uses insulin at home, insulin glargine 20 units at night and insulin Aspart short-acting 10 units before meals. As per the patient, he is taking nitrofurantoin prophylactically, which I will continue as well. I do not have at this moment any source of infection. I wonder if this is medical noncompliance. I believe he has been chronically using steroids and is a low dose so I do not think this is related to the high blood sugar that is getting at this moment, but he has been hospitalized here before. We have been checking his blood sugar before, and on 06/30/2018 he presented with a blood sugar greater than 1000. I do believe he needs to follow up with an humanities and languages professor to try to control these. Maybe, he needs an insulin pump. I will try to suggest that upon discharge, I will try to get an appointment for him if I can. For now, we will do the treatment here. I will continue with his treatment that he is getting at home. He will be transferred to the ICU to monitor this patient closely. Tomorrow, I will get a new set of lab work. I will monitor the kidney function closely since he has a history of kidney transplant. I will get Dr. Benson involved, and our criminal defense attorney if the kidney function does not get better. I agree with the rest of the nurse practitioner's assessment and plan. cc: Magan Alcantar MD
[2019-06-06 20:10] LABS: AGAP 17; BUN 15 mg/dL (8-22); CALCIUM 8.5 mg/dL (8.8-10.2); CHLORIDE 107 mmol/L (98-107); COSMO 276; CREATININE 1.3 mg/dL (0.7-1.2); ESTIMATED GFR > 60; GLUCOSE 163 mg/dL (70-104); MAGNESIUM 1.8 mg/dL (1.5-2.7); POTASSIUM 3.3 mmol/L (3.5-5.1); SODIUM 136 mmol/L (136-145); TCO2 12 mmol/L (25-35)
[2019-06-06] MEDS: PROGRAF PO SCH (21:05)
[2019-06-06] MEDS: CELLCEPT PO SCH (21:06)
[2019-06-06] MEDS: D5 NS 1,000 ML IV PRN (22:13)
[2019-06-06] MEDS: POTASSIUM CHLORIDE 20% LIQUID PO PRN (22:13)
[2019-06-06 22:29] LABS: ALLEN TEST YES; BE -15.4 mmoll (-3.0-3.0); BLOOD TYPE ARTERIAL; HCO3-(ACT) 12.9 mmoll (20.0-26.0); METHB 1.1 % (0.0-1.5); O2(CT) 16.5 mL/dL (15.0-23.0); O2HB 96.9 % (95.0-99.0); PCO2(98.6) 29 mmHg (35-45); PO2(98.6) 99 mmHg (60-100); SAMPLE BLOOD; SAO2 99.6 % (95.0-100.0)
[2019-06-06 22:30] LABS: MODALITY ROOM AIR
[2019-06-07 00:19] LABS: AGAP 19; BUN 14 mg/dL (8-22); CALCIUM 8.8 mg/dL (8.8-10.2); CHLORIDE 105 mmol/L (98-107); COSMO 278; CREATININE 1.3 mg/dL (0.7-1.2); ESTIMATED GFR > 60; GLUCOSE 239 mg/dL (70-104); MAGNESIUM 1.7 mg/dL (1.5-2.7); PHOSPHORUS 2.2 mg/dL (2.7-4.5); POTASSIUM 3.9 mmol/L (3.5-5.1); SODIUM 135 mmol/L (136-145); TCO2 11 mmol/L (25-35)
[2019-06-07 04:50] LABS: ALLEN TEST YES; BE -11.7 mmoll (-3.0-3.0); BLOOD TYPE ARTERIAL; HCO3-(ACT) 15.8 mmoll (20.0-26.0); METHB 1.1 % (0.0-1.5); O2(CT) 10.1 mL/dL (15.0-23.0); PCO2(98.6) 33 mmHg (35-45); PO2(98.6) 120 mmHg (60-100); SAMPLE BLOOD; SAO2 99.5 % (95.0-100.0); THB 7.2 g/dL (11.5-17.4); pH(98.6) 7.25 (7.35-7.45)
[2019-06-07 04:51] LABS: MODALITY ROOM AIR
[2019-06-07 05:11] LABS: AGAP 15; BUN 11 mg/dL (8-22); CALCIUM 8.9 mg/dL (8.8-10.2); CHLORIDE 110 mmol/L (98-107); COSMO 282; CREATININE 1.2 mg/dL (0.7-1.2); ESTIMATED GFR > 60; GLUCOSE 192 mg/dL (70-104); MAGNESIUM 1.9 mg/dL (1.5-2.7); PHOSPHORUS 1.7 mg/dL (2.7-4.5); POTASSIUM 2.9 mmol/L (3.5-5.1); SODIUM 139 mmol/L (136-145); TCO2 14 mmol/L (25-35)
[2019-06-07] MEDS: POTASSIUM CHLORIDE 20% LIQUID PO PRN (05:41)
[2019-06-07 06:10] LABS: MAGNESIUM 1.8 mg/dL (1.5-2.7); PHOSPHORUS 1.6 mg/dL (2.7-4.5)
[2019-06-07] MEDS: D5 NS 1,000 ML IV PRN ×2 (06:14→21:32)
[2019-06-07] MEDS: PRILOSEC PO SCH (06:15)
[2019-06-07] MEDS: NS 1,000 ML IV SCH ×3 (06:37→20:03)
[2019-06-07 06:50] LABS: BASO# 0.02 X1000 (0.0-0.2); BASO% 0.2 % (0.0-0.8); EOS# 0.31 X1000 (0.0-0.7); EOS% 3.7 % (0.0-10.0); HEMATOCRIT 32.2 % (42.0-52.0); HEMOGLOBIN 10.6 g/dL (14.0-18.0); IMM GRAN# 0.04 X1000 (0.0-0.04); IMM GRAN% 0.5 % (0.0-0.5); LYMPH# 1.86 X1000 (1.2-3.4); MCH 25.2 PG (27-31); MCHC 32.9 g/dL (33-37); MCV 76.5 FL (81-99); MONO# 0.45 X1000 (0.11-0.59); MONO% 5.3 % (1.7-9.3); MPV 10.4 FL (7.4-10.4); NEUT# 5.77 X1000 (1.4-6.5); NEUT% 68.3 % (42.2-75.2); PLT 275 X1000 (130-400); RBC 4.21 XMIL (4.7-6.1); RDW 13.5 % (11.5-14.5); WBC 8.45 X1000 (4.8-10.8)
--- NOTE | 2019-06-07 08:34 | PROGRESS NOTE ---
DATE: 06/07/2019 SUBJECTIVE: This patient feels much better today compared with yesterday. He is completely awake, alert. He is oriented x3. He is hungry. I will start this patient on a liquid diet for now to see if he tolerates that. His lab work looks better. His pH improved compared with admission from 7.06 to 7.25. He still has some electrolyte imbalance and his anion gap is still elevated. His kidney function recovered. He is basically almost normal. I will continue with IV fluids. I will continue to monitor this patient in the ICU. OBJECTIVE: Vital Signs: Temperature 97.8 degrees, pulse 74, respiratory rate 13, blood pressure 127/100, oxygen saturation 100% on room air. HEENT: Head normocephalic, no trauma. PERRLA. Neck: Supple. No JVD. No masses. Central trachea. Chest: Clear to auscultation. No wheezing. No rales. Abdomen: Soft, nontender, nondistended. He has multiple abdominal scars, mostly in the anterior part. Extremities: No edema, no clubbing, no cyanosis. Neurological: The patient is awake, alert. He is following commands. He is answering my questions. LABORATORY DATA: WBC 8.4, hemoglobin 10.6, hematocrit 32.2, platelets 275,000. Sodium 139, potassium 2.9, chloride 110, bicarbonate 14, BUN 11, creatinine 1.2, glucose 192, calcium 8.9. Phosphorus 1.6, magnesium 1.8. ASSESSMENT AND PLAN: 1. Diabetic ketoacidosis. Continue with the diabetic ketoacidosis protocol. This is much better and he is feeling much better as well. Continue treating this patient in the ICU. Continue with IV fluids and I will add a liquid diet at this moment. 2. Diabetes mellitus. I will ask for a hemoglobin A1c. As per the patient, he uses insulin at home before meals and also at night. We will monitor for now. He came in diabetic ketoacidosis. 3. 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 Per [facility] alumni coordinator, we will continue with his immunosuppressive medications. As per the patient, he has been placed on Macrobid prophylactically. 4. Microcytic anemia, stable. We will monitor for now. CRITICAL CARE TIME: 32 minutes. cc: Magan Alcantar MD
[2019-06-07] MEDS: D5 1/2 NS 1,000 ML IV SCH ×2 (09:00→17:41)
[2019-06-07] MEDS: PROGRAF PO SCH ×2 (09:27→21:48)
[2019-06-07] MEDS: CELLCEPT PO SCH ×2 (09:27→21:49)
[2019-06-07] MEDS: PREDNISONE PO SCH (09:27)
[2019-06-07] MEDS: POTASSIUM CHLORIDE 10% LIQUID PO PRN ×3 (11:25→17:41)
[2019-06-07 12:17] LABS: ALLEN TEST YES; BE -13.4 mmoll (-3.0-3.0); BLOOD TYPE ARTERIAL; HCO3-(ACT) 13.3 mmoll (20.0-26.0); METHB 1.1 % (0.0-1.5); O2(CT) 8.5 mL/dL (15.0-23.0); PCO2(98.6) 38 mmHg (35-45); SAMPLE BLOOD; SAO2 50.4 % (95.0-100.0); THB 12.4 g/dL (11.5-17.4)
[2019-06-07 12:18] LABS: MODALITY ROOM AIR
[2019-06-07 12:20] LABS: pH(98.6) 7.18 (7.35-7.45)
[2019-06-07 12:21] LABS: O2HB 49.2 % (95.0-99.0); PO2(98.6) 20 mmHg (60-100)
[2019-06-07 12:28] LABS: ESTIMATED GFR > 60
[2019-06-07 12:30] LABS: ESTIMATED GFR > 60
[2019-06-07 12:31] LABS: AGAP 19; BUN 10 mg/dL (8-22); CALCIUM 8.9 mg/dL (8.8-10.2); CHLORIDE 109 mmol/L (98-107); COSMO 279; CREATININE 1.1 mg/dL (0.7-1.2); GLUCOSE 135 mg/dL (70-104); MAGNESIUM 1.8 mg/dL (1.5-2.7); POTASSIUM 3.6 mmol/L (3.5-5.1); SODIUM 139 mmol/L (136-145); TCO2 11 mmol/L (25-35)
[2019-06-07 12:34] LABS: AGAP 13; BUN 8 mg/dL (8-22); CALCIUM 8.8 mg/dL (8.8-10.2); CHLORIDE 106 mmol/L (98-107); COSMO 267; CREATININE 1.1 mg/dL (0.7-1.2); GLUCOSE 135 mg/dL (70-104); MAGNESIUM 1.6 mg/dL (1.5-2.7); POTASSIUM 3.6 mmol/L (3.5-5.1); SODIUM 133 mmol/L (136-145); TCO2 14 mmol/L (25-35)
[2019-06-07 15:46] LABS: ALLEN TEST YES; BE -12.4 mmoll (-3.0-3.0); BLOOD TYPE ARTERIAL; HCO3-(ACT) 15.3 mmoll (20.0-26.0); METHB 1.2 % (0.0-1.5); O2(CT) 16.5 mL/dL (15.0-23.0); O2HB 96.8 % (95.0-99.0); PCO2(98.6) 31 mmHg (35-45); PO2(98.6) 97 mmHg (60-100); SAMPLE BLOOD; SAO2 99.6 % (95.0-100.0); pH(98.6) 7.25 (7.35-7.45)
[2019-06-07 15:47] LABS: MODALITY ROOM AIR
[2019-06-07 16:24] LABS: AGAP 12; BUN 7 mg/dL (8-22); CALCIUM 8.9 mg/dL (8.8-10.2); CHLORIDE 106 mmol/L (98-107); COSMO 275; CREATININE 1.1 mg/dL (0.7-1.2); ESTIMATED GFR > 60; GLUCOSE 323 mg/dL (70-104); POTASSIUM 3.5 mmol/L (3.5-5.1); SODIUM 132 mmol/L (136-145); TCO2 14 mmol/L (25-35)
[2019-06-07 20:15] LABS: AGAP 11; BUN 6 mg/dL (8-22); CALCIUM 8.7 mg/dL (8.8-10.2); CHLORIDE 109 mmol/L (98-107); COSMO 271; CREATININE 0.9 mg/dL (0.7-1.2); ESTIMATED GFR > 60; GLUCOSE 127 mg/dL (70-104); POTASSIUM 3.8 mmol/L (3.5-5.1); SODIUM 136 mmol/L (136-145); TCO2 16 mmol/L (25-35)
[2019-06-07] MEDS: NORVASC PO SCH (21:49)
[2019-06-07] MEDS: PRINIVIL PO SCH (21:49)
[2019-06-07] MEDS: MACROBID PO SCH (21:49)
[2019-06-07] MEDS ORDERED: LANTUS INSULIN SUBQ ONE (23:46)
[2019-06-08] MEDS: NS 1,000 ML IV SCH ×2 (05:38→09:06)
[2019-06-08] MEDS: D5 1/2 NS 1,000 ML IV SCH ×4 (05:38→17:11)
[2019-06-08 06:23] LABS: BASO# 0.01 X1000 (0.0-0.2); BASO% 0.2 % (0.0-0.8); EOS% 4.8 % (0.0-10.0); HEMOGLOBIN 11.9 g/dL (14.0-18.0); IMM GRAN# 0.02 X1000 (0.0-0.04); IMM GRAN% 0.3 % (0.0-0.5); LYMPH# 1.78 X1000 (1.2-3.4); LYMPH% 28.7 % (20.5-51.1); MCH 25.2 PG (27-31); MCHC 33.1 g/dL (33-37); MCV 76.3 FL (81-99); MONO# 0.33 X1000 (0.11-0.59); MONO% 5.3 % (1.7-9.3); MPV 10.1 FL (7.4-10.4); NEUT# 3.77 X1000 (1.4-6.5); NEUT% 60.7 % (42.2-75.2); PLT 292 X1000 (130-400); RBC 4.72 XMIL (4.7-6.1); RDW 14.2 % (11.5-14.5); WBC 6.21 X1000 (4.8-10.8)
[2019-06-08] MEDS: HUMALOG SUBQ SCH ×7 (06:40→22:05)
[2019-06-08 06:57] LABS: AGAP 14; ALB/GLOB RATIO 0.6; ALBUMIN 2.4 g/dL (3.5-5.0); ALKALINE PHOSPHATASE 112 U/L (32-122); BUN 5 mg/dL (8-22); CALCIUM 8.4 mg/dL (8.8-10.2); CHLORIDE 103 mmol/L (98-107); COSMO 283; ESTIMATED GFR > 60; GOT 14 U/L (10-34); GPT 5 U/L (10-44); POTASSIUM 4.1 mmol/L (3.5-5.1); SODIUM 130 mmol/L (136-145); TCO2 13 mmol/L (25-35); TOTAL BILIRUBIN < 0.15 mg/dL (0.20-1.00); TOTAL PROTEIN 6.7 g/dL (6.3-8.3)
[2019-06-08 07:29] LABS: GLUCOSE 544 mg/dL (70-104)
[2019-06-08 07:36] LABS: HEMOGLOBIN A1C 17.6 % (4.8-6.0)
[2019-06-08] MEDS: PRILOSEC PO SCH (07:39)
[2019-06-08] MEDS ORDERED: D50W SYRINGE IV PRN (08:23)
[2019-06-08] MEDS ORDERED: HUMULIN R 100 UNIT in NS 100 ML IV SCH (08:30)
--- NOTE | 2019-06-08 08:41 | Diag Imaging Result Doc PS360 ---
EXAM: CHEST-PORTABLE HISTORY: SOB TECHNIQUE: Single view COMPARISON: 06/06/2019 FINDINGS: The lungs are well expanded. The heart is not enlarged. The vessels are not distended. There are no infiltrates. No effusion identified. IMPRESSION: Negative exam. Electronically signed by Gabriel Trevino 06/08/2019 8:38 AM
--- NOTE | 2019-06-08 09:09 | PROGRESS NOTE ---
DATE: 06/08/2019 SUBJECTIVE: The patient is feeling better. He is awake, he is oriented. I will advance his diet. We stopped the DKA protocol yesterday, but the gap increased again and the blood sugar today was 544, so I will restart the insulin protocol today and monitor this patient closely. His hemoglobin A1c is extremely high at 17.6. It looks like this patient has not been taking care of his diabetes at home, I will measure, as per the patient, he has an medical assistant cardiology and the last time he saw the medical assistant cardiology was more than 6 months ago. Urine culture showed yeast, I will put this patient on micafungin and I asked the laboratory to identify the yeast. OBJECTIVE: Vital Signs: Temperature 97.6 degrees, pulse 90, respiratory rate 15, blood pressure 100/62, oxygen saturation 100% on room air. HEENT: Head normocephalic, no trauma. PERRLA. Neck: Supple. No JVD. No masses. Central trachea. Chest: Clear to auscultation. No wheezing. No rales. Abdomen: Soft, nontender, nondistended. He has multiple abdominal scars, mostly in the anterior part. Extremities: No edema, no clubbing, no cyanosis. Neurological: The patient is awake, he is alert, he is following commands, he is answering my questions. LABORATORY DATA: WBC 6.2, hemoglobin 11.9, hematocrit 36, platelets 292,000. Sodium 130, potassium 4.1, chloride 103, bicarbonate 13, BUN 5, creatinine is 1, glucose 544, hemoglobin A1c 17.6, calcium 8.4. AST 14, ALT 5, alkaline phosphatase 112, albumin 2.4. ASSESSMENT AND PLAN: 1. Diabetic ketoacidosis. The insulin protocol was stopped yesterday, but this patient is still having problem with the blood sugar, so I will restart the protocol. His blood sugar today was above 500 even though he received a dose of Lantus yesterday. As per the patient, he has an medical assistant cardiology in [place] and he is saw this doctor more than 6 months ago. I do not believe this patient is taking care of his diabetes at home based on the lab work results, I do not believe insulin Lantus 20 units is going to be enough for him. I will continue to monitor this patient in the ICU, continue with the protocol. 2. Uncontrolled type 1 diabetes. Hemoglobin A1c 17.6. This is really not well controlled. I had a large conversation with the patient about this problem. 3. 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 Per the [facility] merchandising coordinator, we will continue with his immunosuppressive medications and I agree with that. As per the patient, he has been placed on Macrobid prophylactically. 4. Urinary tract infection with yeast. I will have placed this patient on Micafungin on a daily basis. 5. Microcytic anemia, stable. Continue to monitor for now. CRITICAL CARE TIME: 35 minutes. cc: Magan Alcantar MD
[2019-06-08] MEDS: CELLCEPT PO SCH ×2 (09:16→22:04)
[2019-06-08] MEDS: PROGRAF PO SCH ×2 (09:17→22:04)
[2019-06-08] MEDS: NORVASC PO SCH ×2 (09:17→22:04)
[2019-06-08] MEDS: PREDNISONE PO SCH (09:17)
[2019-06-08] MEDS: MYCAMINE 100 MG in NS 100 ML IV SCH (09:53)
[2019-06-08 10:20] LABS: CHLORIDE 103 mmol/L (98-107); POTASSIUM 4.2 mmol/L (3.5-5.1); SODIUM 132 mmol/L (136-145)
[2019-06-08 10:23] LABS: TCO2 11 mmol/L (25-35)
[2019-06-08 10:24] LABS: AGAP 18; BUN 6 mg/dL (8-22); CALCIUM 8.7 mg/dL (8.8-10.2); COSMO 279; CREATININE 0.9 mg/dL (0.7-1.2); ESTIMATED GFR > 60; GLUCOSE 395 mg/dL (70-104); PHOSPHORUS 1.6 mg/dL (2.7-4.5)
[2019-06-08] MEDS: POTASSIUM CHLORIDE 10% LIQUID PO PRN ×2 (10:34→18:27)
[2019-06-08] MEDS: 1/2 NS 1,000 ML IV SCH ×2 (12:21→14:08)
[2019-06-08 12:45] LABS: AGAP 13; BUN 5 mg/dL (8-22); CALCIUM 8.9 mg/dL (8.8-10.2); CHLORIDE 106 mmol/L (98-107); COSMO 278; CREATININE 0.9 mg/dL (0.7-1.2); ESTIMATED GFR > 60; GLUCOSE 159 mg/dL (70-104); MAGNESIUM 1.9 mg/dL (1.5-2.7); PHOSPHORUS 1.3 mg/dL (2.7-4.5); POTASSIUM 3.4 mmol/L (3.5-5.1); SODIUM 139 mmol/L (136-145); TCO2 20 mmol/L (25-35)
[2019-06-08] MEDS: POTASSIUM CHLORIDE 20% LIQUID PO PRN (14:16)
[2019-06-08 16:01] LABS: ALLEN TEST YES; BLOOD TYPE ARTERIAL; METHB 1.2 % (0.0-1.5); O2(CT) 16.3 mL/dL (15.0-23.0); O2HB 96.6 % (95.0-99.0); PCO2(98.6) 35 mmHg (35-45); PO2(98.6) 95 mmHg (60-100); SAMPLE BLOOD; SAO2 99.2 % (95.0-100.0); THB 11.9 g/dL (11.5-17.4); pH(98.6) 7.36 (7.35-7.45)
[2019-06-08 16:02] LABS: MODALITY ROOM AIR
[2019-06-08 17:38] LABS: AGAP 11; BUN 6 mg/dL (8-22); CALCIUM 8.5 mg/dL (8.8-10.2); CHLORIDE 107 mmol/L (98-107); COSMO 275; CREATININE 0.9 mg/dL (0.7-1.2); ESTIMATED GFR > 60; GLUCOSE 201 mg/dL (70-104); MAGNESIUM 1.9 mg/dL (1.5-2.7); PHOSPHORUS 1.3 mg/dL (2.7-4.5); POTASSIUM 4.5 mmol/L (3.5-5.1); SODIUM 136 mmol/L (136-145); TCO2 18 mmol/L (25-35)
[2019-06-08] MEDS ORDERED: HUMALOG SUBQ SCH (21:00)
[2019-06-08 21:08] LABS: ESTIMATED GFR > 60
[2019-06-08 21:10] LABS: AGAP 14; BUN 6 mg/dL (8-22); CALCIUM 8.7 mg/dL (8.8-10.2); CHLORIDE 105 mmol/L (98-107); COSMO 274; GLUCOSE 284 mg/dL (70-104); MAGNESIUM 1.9 mg/dL (1.5-2.7); PHOSPHORUS 1.6 mg/dL (2.7-4.5); POTASSIUM 4.3 mmol/L (3.5-5.1); SODIUM 133 mmol/L (136-145); TCO2 14 mmol/L (25-35)
[2019-06-08] MEDS: MACROBID PO SCH (22:04)
[2019-06-08] MEDS: PRINIVIL PO SCH (22:04)
[2019-06-09] MEDS: D5 1/2 NS 1,000 ML IV SCH ×2 (00:58→02:24)
[2019-06-09 02:07] LABS: AGAP 13; BUN 8 mg/dL (8-22); CALCIUM 8.4 mg/dL (8.8-10.2); CHLORIDE 102 mmol/L (98-107); COSMO 270; CREATININE 0.8 mg/dL (0.7-1.2); ESTIMATED GFR > 60; GLUCOSE 192 mg/dL (70-104); MAGNESIUM 1.7 mg/dL (1.5-2.7); PHOSPHORUS 1.6 mg/dL (2.7-4.5); POTASSIUM 3.4 mmol/L (3.5-5.1); SODIUM 133 mmol/L (136-145); TCO2 18 mmol/L (25-35)
[2019-06-09] MEDS: POTASSIUM CHLORIDE 20% LIQUID PO PRN (03:55)
[2019-06-09 04:30] LABS: ALLEN TEST YES; BE -3.9 mmoll (-3.0-3.0); BLOOD TYPE ARTERIAL; HCO3-(ACT) 21.9 mmoll (20.0-26.0); METHB 0.9 % (0.0-1.5); O2(CT) 15.8 mL/dL (15.0-23.0); O2HB 96.8 % (95.0-99.0); PCO2(98.6) 40 mmHg (35-45); PO2(98.6) 104 mmHg (60-100); SAMPLE BLOOD; SAO2 99.6 % (95.0-100.0); THB 11.5 g/dL (11.5-17.4); pH(98.6) 7.34 (7.35-7.45)
[2019-06-09 04:31] LABS: MODALITY ROOM AIR
[2019-06-09 04:44] LABS: AGAP 10; BUN 9 mg/dL (8-22); CALCIUM 8.5 mg/dL (8.8-10.2); CHLORIDE 108 mmol/L (98-107); COSMO 282; CREATININE 0.8 mg/dL (0.7-1.2); ESTIMATED GFR > 60; GLUCOSE 198 mg/dL (70-104); MAGNESIUM 1.9 mg/dL (1.5-2.7); PHOSPHORUS 2.3 mg/dL (2.7-4.5); POTASSIUM 3.5 mmol/L (3.5-5.1); SODIUM 139 mmol/L (136-145); TCO2 21 mmol/L (25-35)
[2019-06-09 06:15] LABS: BASO# 0.02 X1000 (0.0-0.2); BASO% 0.3 % (0.0-0.8); EOS# 0.26 X1000 (0.0-0.7); EOS% 3.6 % (0.0-10.0); HEMATOCRIT 33.8 % (42.0-52.0); HEMOGLOBIN 11.1 g/dL (14.0-18.0); IMM GRAN# 0.02 X1000 (0.0-0.04); IMM GRAN% 0.3 % (0.0-0.5); LYMPH# 1.95 X1000 (1.2-3.4); MCH 25.1 PG (27-31); MCHC 32.8 g/dL (33-37); MCV 76.5 FL (81-99); MONO% 6.9 % (1.7-9.3); MPV 10.8 FL (7.4-10.4); NEUT# 4.47 X1000 (1.4-6.5); NEUT% 61.9 % (42.2-75.2); PLT 306 X1000 (130-400); RBC 4.42 XMIL (4.7-6.1); RDW 13.9 % (11.5-14.5); WBC 7.22 X1000 (4.8-10.8)
[2019-06-09] MEDS: PRILOSEC PO SCH (06:24)
[2019-06-09] MEDS: HUMALOG SUBQ SCH ×7 (07:20→20:41)
--- NOTE | 2019-06-09 08:21 | PROGRESS NOTE ---
DATE: 06/09/2019 SUBJECTIVE: The patient is feeling better. The DKA resolved. He received around 45 units of insulin in 24 hours. His hemoglobin A1c is 17.6, so it looks like this patient has not been taking care of his diabetes at home. I will increase the dose of the insulin Lantus from 20 to 30 and keep an eye on him. He does have a urinary tract infection and that showed Krissy albicans. He has been placed on micafungin since yesterday. Blood culture is negative. He seems to be stable. OBJECTIVE: Vital Signs: Temperature 98.1 degrees, pulse 79, respiratory rate 12, blood pressure 102/59, oxygen saturation 99 on room air. HEENT: Head normocephalic, no trauma. PERRLA. Neck: Supple. No JVD. No masses. Central trachea. Chest: Clear to auscultation. No wheezing. No rales. Abdomen: Soft, nontender, nondistended. He has multiple abdominal scars, mostly in the anterior part. Extremities: No edema, no clubbing, no cyanosis. Neurological examination: The patient is sleepy, but arousable. He is following commands. He is answering my questions. LABORATORY: WBC 7.2, hemoglobin 11.1, hematocrit 33.8, platelet 306. Sodium 139, potassium 3.5, chloride 108, bicarbonate 21. BUN 9, creatinine 0.8 glucose 198, calcium 8.5, phosphorus 2.3, magnesium 1.9. ASSESSMENT AND PLAN: 1. Diabetic ketoacidosis, resolved. He used around 45 units of insulin in the past 24 hours, so I will stop the insulin drip and put him on insulin Lantus 30 units and continue with short- acting insulin before meals, and sliding scale insulin as well with pattern of blood sugar. 2. Uncontrolled type 1 diabetes with a hemoglobin A1c of 17.6. We had a large conversation about insulin treatment and diabetes. 3. 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 Per the [employer] social service coordinator, we will need to continue with his immunosuppressive medication and I agree with that. As per the patient, he has been placed on Macrobid prophylactically. 4. Urinary tract infection with Krissy, candiduria. Continue with micafungin. 5. Microcytic anemia, stable. Continue to monitor for now. Overall, this patient seems to be doing better. I will wait to stop the insulin drip to decide if he can go to the floor or PVC. cc: Magan Alcantar MD
[2019-06-09] MEDS: CELLCEPT PO SCH ×2 (08:57→20:43)
[2019-06-09] MEDS: MYCAMINE 100 MG in NS 100 ML IV SCH (08:57)
[2019-06-09] MEDS: PROGRAF PO SCH ×2 (08:57→20:42)
[2019-06-09] MEDS: PREDNISONE PO SCH (08:58)
[2019-06-09] MEDS: NORVASC PO SCH ×2 (08:58→20:43)
[2019-06-09] MEDS ORDERED: LANTUS INSULIN SUBQ SCH (09:00)
[2019-06-09] MEDS: PRINIVIL PO SCH (20:42)
[2019-06-09] MEDS: MACROBID PO SCH (21:25)
[2019-06-10] MEDS: HUMALOG SUBQ SCH ×7 (06:14→22:11)
[2019-06-10] MEDS: PRILOSEC PO SCH (06:15)
[2019-06-10 06:47] LABS: AGAP 13; BUN 14 mg/dL (8-22); CALCIUM 9.4 mg/dL (8.8-10.2); CHLORIDE 100 mmol/L (98-107); COSMO 289; CREATININE 0.9 mg/dL (0.7-1.2); ESTIMATED GFR > 60; GLUCOSE 322 mg/dL (70-104); POTASSIUM 3.7 mmol/L (3.5-5.1); SODIUM 138 mmol/L (136-145); TCO2 25 mmol/L (25-35)
[2019-06-10] MEDS: PROGRAF PO SCH ×2 (08:20→22:10)
[2019-06-10] MEDS: MYCAMINE 100 MG in NS 100 ML IV SCH (08:20)
[2019-06-10] MEDS: CELLCEPT PO SCH ×2 (08:20→22:11)
[2019-06-10] MEDS: NORVASC PO SCH ×2 (08:21→22:11)
[2019-06-10] MEDS: LANTUS INSULIN SUBQ SCH (08:21)
[2019-06-10] MEDS: PREDNISONE PO SCH (08:21)
--- NOTE | 2019-06-10 11:21 | PROGRESS NOTE ---
DATE: 06/10/2019 SUBJECTIVE: The patient is feeling better. He is tolerating p.o. Diabetic ketoacidosis has resolved. I will increase the dose of the Lantus from 30 to 40. His hemoglobin A1c is 17.6. OBJECTIVE: Vital Signs: Temperature 98.3 degrees, pulse 80, respiratory rate 13, blood pressure 121/87, oxygen saturation 99 on room air. HEENT: Head normocephalic, no trauma, PERRLA. Neck: Supple. No JVD. No masses. Central trachea. Chest: Clear to auscultation. No wheezing or rales. Abdomen: Soft, nontender, nondistended. He has multiple abdominal scars mostly in the anterior part. Extremities: No edema, no clubbing, no cyanosis. Neurological Examination: The patient is sleepy, but arousable. He is following commands. He is oriented. He is answering my questions. LABORATORY: Sodium 138, potassium 3.7, chloride 100, bicarbonate 25, BUN 14, creatinine 0.9, glucose 322, calcium 9.4. ASSESSMENT AND PLAN: 1. Diabetic ketoacidosis, resolved. I have increased the dose of the Lantus from 30 to 40 and I will continue with insulin before meals as well, the patient can be transferred to the floor. Hopefully tomorrow will discharge this patient home. 2. Uncontrolled type 1 diabetes with a hemoglobin A1c of 17.6. We had yesterday a large conversation about insulin treatment and diabetes. He seems to understand, but I do not think he is following a diet or using the insulin as directed. 3. History of renal transplant secondary to Prune-Belly syndrome in 2006. Per the [facility] mailroom coordinator, will continue with immunosuppressive medication, and I agree with that. 4. Urinary tract infection with Krissy, continue with micafungin. 5. Microcytic anemia, stable. Continue to monitor. cc: Magan Alcantar MD
[2019-06-10] MEDS: MACROBID PO SCH (22:10)
[2019-06-10] MEDS: PRINIVIL PO SCH (22:11)
[2019-06-11] MEDS: PRILOSEC PO SCH (06:42)
[2019-06-11] MEDS: HUMALOG SUBQ SCH ×3 (06:42→10:46)
[2019-06-11 07:39] LABS: AGAP 13; BUN 13 mg/dL (8-22); CALCIUM 9.3 mg/dL (8.8-10.2); CHLORIDE 99 mmol/L (98-107); COSMO 284; ESTIMATED GFR > 60; GLUCOSE 286 mg/dL (70-104); POTASSIUM 3.2 mmol/L (3.5-5.1); SODIUM 137 mmol/L (136-145); TCO2 25 mmol/L (25-35)
[2019-06-11] MEDS: MYCAMINE 100 MG in NS 100 ML IV SCH (08:50)
[2019-06-11] MEDS: PROGRAF PO SCH (08:50)
[2019-06-11] MEDS: PREDNISONE PO SCH (08:50)
[2019-06-11] MEDS: NORVASC PO SCH (08:50)
[2019-06-11] MEDS: CELLCEPT PO SCH (08:51)
[2019-06-11] MEDS: LANTUS INSULIN SUBQ SCH (08:52)
[2019-06-11] MEDS ORDERED: KLOR-CON PO ONE (09:35)
[2019-06-11 11:43] VITALS: BP 115/71
--- NOTE | 2019-06-11 18:30 | DISCHARGE SUMMARY ---
ADMISSION DATE: 06/06/2019 DISCHARGE DATE: 06/11/2019 DISCHARGE DIAGNOSES: 1. Diabetic ketoacidosis, resolved. 2. Uncontrolled type 1 diabetes with severely elevated hemoglobin A1c at 17.6. 3. Medication noncompliance. 4. 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 5. Asymptomatic urinary tract infection with Krissy. 6. Microcytic anemia. 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 He reported no recent , illnesses, like fever, chills, nausea, vomiting, diarrhea, or dysuria. He does report that he is on Macrodantin for maintenance dose for his kidneys. Dr. Heredia spoke with the venue coordinator at [facility]. They are willing to accept the patient. However, they are currently on diversion. At that moment they were on diversion secondary to no beds. He was found to be in DKA. He was placed on the DKA protocol. He was actually tolerating p.o. since admission and he was placed on a liquid diet. It has been recommended to continue with his kidney transplant medication, which we did. I had a large conversation with the patient about his treatment. He does not measure his blood sugar at home. He uses Lantus 20 units daily and also a short-acting insulin before meals, around 10 units. I do not believe that this patient has been using the medications as prescribed. Like I mentioned before, he was not checking his blood sugar at home either. His initial blood sugar was around 700 and again he was in DKA. He requested a prescription for his Lantus, because I think he had run out of treatment. At any rate, he was transferred to the ICU and placed on the DKA protocol. During the course of his hospitalization, his blood culture has been negative for at least 5 days. The urine culture, though, grew Krissy albicans. He was placed on micafungin. I had a large conversation with this patient about it. He is asymptomatic and he is not having any abdominal pain or symptoms. His white blood cell count is normal, so I told him to call he has a kidney transplant doctor to ask if he needs to be on medications for that or not. Since he is asymptomatic, I will lead the kidney transplant doctor to decide if this patient needs the treatment at this point. Again, I told the patient to call tomorrow his kidney transplant doctor. On the other hand, I told the patient that he needs to call his surgical specialist. He told me that he sees a doctor at [facility] and he will call tomorrow as well to make an appointment with this doctor. I have increased the dose of Lantus from 20 to 50, even with 40 he was having hyperglycemia in the 200s, but much better than 700 that he was getting upon admission. He told me that he will check his blood sugar at home from now on and he will take care of himself. PHYSICAL EXAMINATION: Vital Signs: Temperature 98.4 degrees, pulse 101, respiratory rate 16, blood pressure 115/71, oxygen saturation 98% on room air. HEENT: Head normocephalic. No trauma. PERRLA. Neck: Supple. No JVD. No masses. Central trachea. Chest: Clear to auscultation. No wheezing. No rales. Abdomen: Soft, nontender, nondistended. He has multiple abdominal scars, mostly in the anterior part. No pain. Extremities: No edema, no clubbing, no cyanosis. Decreased muscle mass. Neurological: The patient is awake and alert. He is oriented x3. He is following commands and answering my questions. LABORATORY: Sodium 137, potassium 3.2, chloride 99, bicarbonate 25, BUN 13, creatinine 1, glucose 286, calcium 9.3. DISCHARGE MEDICATIONS: Amlodipine 10 mg p.o. b.i.d. Insulin aspart 10 units subcutaneous before meals. Insulin glargine 50 units subcutaneous nightly. Lisinopril 5 mg p.o. at bedtime, mycophenolate mofetil 500 mg tablet p.o. b.i.d., nitrofurantoin 100 mg p.o. at bedtime, omeprazole 20 mg p.o. daily, prednisone 5 mg p.o. daily, and tacrolimus 2 mg p.o. b.i.d. TIME SPENT ON DISCHARGE: Time explaining to the patient all the procedures that he needs to make tomorrow and talking to him about his general condition; around 20 minutes. cc: Magan Alcantar MD
--- NOTE | 2019-06-12 04:37 | DISCHARGE SUMMARY ---
ADMISSION DATE: 06/06/2019 DISCHARGE DATE: 06/11/2019 ADDENDUM The patient has been already discharged, and he already received a dose of Lantus 50 units today in the morning. The prescription says that he needs to take it during the night. We will call the patient and the him know that he needs to continue treatment only during the day and not during the night. The charge nurse has been notified, and she will call the patient. cc: Magan Alcantar MD
[2019-06-12] MEDS ORDERED: LANTUS INSULIN SUBQ SCH (09:00)
== END 2019-06-11 12:04 | disposition home or self-care (01) | DRG 637 ==
LOC: ED 07:35 → SUATTDRO 14:36 → EDIPHOLD 14:36 → ICU 21:28 → 4N 06-10 09:16
PROVIDERS: ADMIT Internal Medicine; ATTEND Internal Medicine